=== PATIENT | male | born 1965 | race Caucasian/White ===

== ENCOUNTER 2023-11-06 21:19 | Inpatient (IN) | payer OTHER, SELFPAY ==
[2023-11-06] VITALS (7 sets, daily range): BP systolic 117–142; BP diastolic 72–100; BMI 31.9; BMI 32.3
--- NOTE | 2023-11-06 17:25 | ED.GENMED ---
History of Present Illness
General
Chief Complaint: Chest Pain
Source: patient
Exam Limitations: none
Time Seen by Provider: 11/06/23 17:13
Nursing documentation reviewed up to this point in time: agreed with
History of Present Illness
History of Present Illness:
58-year-old male presents emergency department complaining of chest pain left-sided, left shoulder and left leg.
Past History
Past History
ED Past Medical History: Other (Anemia)
ED Past Surgical History: Other (Hernia repair)
Social History
Tobacco: Non-smoker
Alcohol: None
Drug: None
Personal:
Living: with family
Employment: Employed
Review of Systems
Review of Systems
Allergies reviewed?: Yes
All Other Systems: Not applicable
Constitutional: Reports no symptoms
EENT: Reports no symptoms
Respiratory: Reports no symptoms
Cardiac: Reports chest pain
ABD/GI: Reports no symptoms
: Reports no symptoms
Musculoskeletal: Reports no symptoms
Skin: Reports no symptoms
Neurological: Reports no symptoms
Endocrine: Reports no symptoms
Hematologic/Lymphatic: Reports no symptoms
Psychiatric: Reports no symptoms
Phy Exam
Physical Exam
Physical Exam:
Physical Exam
General: no apparent distress, not acutely ill
Neck: supple. no meningeal signs. normal posterior pharynx
Heart: s1/s2 regular rate and rhythm, no murmur. equal radial
pulses. Left chest wall tenderness
HEENT: Pupils equal round reactive to light, EOMI
Lungs: no acute respiratory distress. clear bilaterally
Abdomen: normal bowel sounds. not tender. no CVAT
Neuro: alert and oriented. no focal neurological deficits cranial nerves II through XII intact
Skin: no rash
Psychiatric: well kept. interactive and cooperative
Extremities: no edema. no calf tenderness. negative homans. good distal pulses
Scores
Heart Score for Chest Pain Patients
STEMI patient?: Not applicable
Course
Orders/Labs/Results
Orders:
Orders
11/06/23 16:37
EKG [Electrocardiogram (*1)] Urgent
Reason for Study: Chest Pain
EKG- Treatment ONCE
11/06/23 17:15
Complete Blood Count/With Diff Urgent
Comprehensive Metabolic Panel Urgent
Troponin I Urgent
11/06/23 17:21
HYDROmorphone [Dilaudid] 1 mg .ROUTE .STK-MED ONE
Ondansetron Injectable [Zofran] 4 mg .ROUTE .STK-MED ONE
11/06/23 17:25
HYDROmorphone [Dilaudid] 1 mg IV NOW STA
Ondansetron Injectable [Zofran] 4 mg IV NOW STA
11/06/23 17:29
CT Chest/abd/pelvis Angio W/wo Urgent
Comment:
Reason For Exam: Chest pain radiating to abdomen and back
11/06/23 19:16
HYDROmorphone [Dilaudid] 1 mg IV NOW STA
11/06/23 19:45
PTT Urgent
Comment: Obtain baseline before beginning heparin infusion if not already collected
Heparin 7,600 units IV NOW STA
Heparin INFUSION titrate rate - CONTINUOUS Heparin 01411 Units/250 ml 25,000 units in 250 ml IV PER PROTOCOL
Weight to be used for heparin protocol in kilograms (kg):: 95.254
Protocol:: DVT/PE
PTT Goal Range to be used:: PTT 73 to 111 seconds
Order type:: Initial
INITIAL Infusion Dose (UNITS/KG/hr) & then follow protocol:: 18 units/kg/hr
Infusion Dose in UNITS/hr & then follow protocol (UNITS/hr):: 1,700
INFUSION RATE in mL/hr & then follow protocol (mL/hr):: 17
For DVT/PE algorithm, re-bolus for low PTT?: Yes
PTT less than or equal to 64 seconds:: Re-bolus 80 units/kg (max 10,000units). Increase by 400 units/hr
(+ 4mL/hr)
PTT 64.1 to 72.9 seconds:: Re-bolus 40 units/kg (max 5,000 units). Increase by 200 units/hr
(+ 2mL/hr)
PTT 73 to 111 seconds:: Target Range. No change in rate.
PTT 111.1 to 130.9 seconds:: Decrease rate by 200 units/hr (- 2 mL/hr)
PTT 131 to 199.9 seconds:: HOLD for 1 hr. Then decrease by 300 units/hr (- 3mL/hr)
PTT greater than or equal to 200 seconds:: HOLD for 2 hrs & Notify Provider. Then decrease by 400 units/hr
(- 4mL/hr)
Lab follow-up:: Each change, PTT q6h until 2 consecutive are therapeutic. Then
PTT daily.
Pharmacy Request to Place See Dose Instructions PO NOW STA
Discontinue all Active Warfarin orders?: Yes
Nursing to Place Non Medication Order As Directed
Physician Order: PTT 6 hours after initial start of Heparin infusion
11/06/23 20:[address] See Dose Instructions IV DIRECTED
Abnormal Lab Results
11/06/23
17:15
RBC 4.62 L 10^6/uL
(4.70-6.10)
MPV 10.8 H fL
(7.4-10.4)
Absolute Neuts (auto) 6.7 H 10^3/uL
(1.4-6.5)
Lymphocytes % 17.5 L %
(20.5-51.1)
BUN 22 H mg/dl
(9-20)
Glucose 155 H mg/dl
(70-99)
11/06/23 17:15
11/06/23 17:15
Vital Signs
Initial and Last Documented VS:
Initial Vital Signs
Temp Pulse Resp BP Pulse Ox
98.1 F 103 22 141/86 94
11/06/23 16:43 11/06/23 16:43 11/06/23 16:43 11/06/23 16:43 11/06/23 16:43
Last Documented Vital Signs
Temp Pulse Resp BP Pulse Ox
98.1 F 81 13 117/72 96
11/06/23 16:43 11/06/23 18:00 11/06/23 18:00 11/06/23 18:00 11/06/23 18:00
MDM/Problems Addressed
Differential Diagnosis Includes:
Pulmonary embolism, aortic dissection
MDM/Problems Addressed:
58-year-old male with bilateral pulmonary emboli. No signs of dissection. IV heparin ordered. Admit to hospitalist.
*Radiology
Radiology exam reviewed: radiology read reviewed (Bilateral pulmonary emboli on CT)
*Pulse Oximetry
Patient hypoxic: no
*EKG
Interpreted by ED Provider?: Yes
EKG Intrepretation Date: 11/06/23
EKG Intrepretation Time: 16:40
Interpretation: normal
Comparison EKG: no comparison EKG present
Heart Rate: 96
Rate: normal
Rhythm: sinus
Thurman: normal axis
Interval: normal interval
QRS Pattern: normal QRS
Ischemia: no ischemia
*[employer] Interpretation
Rate: normal
Interpretation: normal
Heart Rate: 95
Rhythm: sinus
*Critical Care Note
Total Time (30-74mins, 75-104mins- exclusive of procedures): 30
comment:
Critical care statement: A total of 30 minutes of critical care time was provided for this patient. This includes management of unstable vital signs, evaluation of the patient at bedside, reviewing the patient's pertinent medical records, discussion
with consultants, review of old EKGs and review of pertinent medical records. This time with separate from time utilized to perform the aforementioned documented procedures
Patient Management
Social determinants of health affecting care: Living situation
Discussion with other providers: Hospitalist
Escalation/DeEscalation of care consider admission/obs:
Admit indicated
ED Attending Note
-
Portions of this chart may have been created with voice recognition software.� Occasional wrong word or��sound alike� substitutions may have occurred due to the inherent limitations of voice recognition software.
Discharge Plan
Departure
Patient Disposition: Admit
Date of Disposition: 11/06/23
Time of Disposition: 19:41
Admit to: IMU
Presentation/result/management discussed w/ accepting MD/DO: Hospitalist
Patient with high blood pressure during this ER visit?: Yes
Condition: Fair
Discharge Problem:
Bilateral pulmonary embolism
Prescriptions:
No Action
shilajit 250 mg Capsule
250 mg PO DAILY
Referrals:
Lo Oreilly DO [Family Provider] -
Interventions
Interventions:
*Risk Screen - Suicide Last Done: 11/06/23 16:46
*General Assessment Last Done: 11/06/23 17:20
*Neglect/Abuse Screening Last Done: 11/06/23 16:46
ED- Fall Risk Assessment Last Done: 11/06/23 17:19
*ED COVID-19 Vaccine History Last Done: 11/06/23 17:20
ED- Cardiac Assessment Last Done: 11/06/23 17:19
Discharge Date and Time
Print Language: ITALIAN
[2023-11-06 17:26] LABS: % Basophils 0.5 % (0-2); % Immature Granulocytes 0.3 % (0-0.5); % Lymphocytes 17.5 % (20.5-51.1); % Neutrophils 73.7 % (42.2-75.2); Absolute Basophils 0.1 10^3/uL (0-0.2); Absolute Eosinophils 0.2 10^3/uL (0-0.7); Absolute Lymphocytes 1.6 10^3/uL (1.2-3.4); Absolute Monocytes 0.6 10^3/uL (0.1-0.6); Absolute Neutrophils 6.7 10^3/uL (1.4-6.5); Hematocrit 39.4 % (39.0-52.0); Hemoglobin 13.7 g/dL (13.0-18.0); Mean Corp Hgb Conc. 34.8 g/dL (33.0-37.0); Mean Corpuscular Hgb 29.7 pg (27.0-31.0); Mean Corpuscular Volume 85.3 fL (80.0-94.0); Mean Platelet Volume 10.8 fL (7.4-10.4); Nucleated Red Blood Cells % 0 % (-); Platelet Count 323 10^3/uL (130-400); Red Blood Cell Count 4.62 10^6/uL (4.70-6.10); Red Cell Dist. Width 12.3 % (11.5-14.5); White Blood Cell Count 9.2 10^3/uL (4.8-10.8)
[2023-11-06] MEDS: ZOFRAN 4 MG IV (17:33)
[2023-11-06] MEDS: DILAUDID 1 MG IV ×2 (17:33→19:20)
[2023-11-06 17:50] LABS: Troponin I < 0.012 ng/ml
[2023-11-06 17:54] LABS: ALT (SGPT) 20 U/L (0-50); AST (SGOT) 22 U/L (17-59); Albumin 4.6 g/dl (3.5-5.0); Alkaline Phosphatase 75 U/L (38-126); Blood Urea Nitrogen 22 mg/dl (9-20); Calcium 10.1 mg/dl (8.4-10.2); Carbon Dioxide 24 mmol/L (22-30); Chloride 100 mmol/L (98-107); Estimated Creatinine Clearance 81 ml/min; Glucose 155 mg/dl (70-99); Sodium 139 mmol/L (135-145); Total Bilirubin 0.8 mg/dl (0.2-1.3); Total Protein 7.5 g/dl (6.3-8.2); eGFR > 60.00
[2023-11-06] MEDS: HEPARIN 7600 UNITS IV (19:51)
[2023-11-06] MEDS: HEPARIN 25000 UNITS/250 ML IV (20:03)
--- NOTE | 2023-11-06 20:19 | HPS.HSE ---
Family Physician
-
Family Physician: Lo Oreilly
Chief Complaint
-
Left-sided chest pain
History of Present Illness
58-year-old male presents emergency department complaining of chest pain left-sided, left shoulder and left leg.patient stated his symptoms started on left LE on saturday, slowly noticed on left thigh, left side of abdomen, shoulder, chest and back.
today his chest pain got worse. sob worse with exertion and also non productive cough. his symptoms were worse when laying, improves when standing up. denied fever, chills, runny nose, congestion.denied MONTERROSO, dizzy or syncopal episode. denied n,v,d.
denied dysuria or hematuria. denied any recent travel. he sits pretty much all day at work, denied any physical activity.
CT with bilateral PE.
Medical History
Past Medical History
Past Medical History: Reports None
Past Surgical History: Reports Other
Additional Past Surgical History:
hernia surgery
Social History
Tobacco: Non-smoker
Alcohol: None
Drug: None
Personal:
Living: With Family
Employment: Employed
Family History
Family History: Cancer (lung ca with father)
Allergies / Home Medications
Allergies reflects when Allergies were last updated in [facility].
Home Medications with original date entered in [facility]
Allergy/Medication List:
Allergies
Allergy/AdvReac Type Severity Reaction Status Date / Time
No Known Allergies Allergy Unverified 11/06/23 17:26
Home Medications
shilajit 250 mg capsule 250 mg PO DAILY 11/06/23
Review of Systems
-
Constitutional: Reports No Symptoms
EENT: Reports No Symptoms
Respiratory: Reports Cough and Trouble Breathing
Cardiac: Reports Chest Pain
Abdomen/GI: Reports No Symptoms
: Reports No Symptoms
Musculoskeletal: Reports No Symptoms
Skin: Reports No Symptoms
Neurological: Reports No Symptoms
Endocrine: Reports No Symptoms
Hematologic/Lymphatic: Reports No Symptoms
Psych: Reports No Symptoms
Physical Exam
Vital Signs
Vital Signs
Temp Pulse Resp BP Pulse Ox
98.1 F 81 13 117/72 96
11/06/23 16:43 11/06/23 18:00 11/06/23 18:00 11/06/23 18:00 11/06/23 18:00
Physical Exam
General: Well Developed, Well Nourished and No Apparent Distress
HEENT: NormoCephalic, Moist mucous membranes and Atraumatic
Respiratory: Clear
Cardiac: S1/S2 and Regular Rhythm; No Murmur or Rub
GI: Soft, Non Tender, Non Distended and Normal Bowel Sounds; No Organomegaly
Rectal: Deferred by Provider
Musculoskeletal: No Clubbing, No Cyanosis and No Edema
Skin: No Rash
Neuro: AO x 3 and Nonfocal/grossly intact
Psych: Calm
Laboratory Results
-
11/06/23 17:15
11/06/23 17:15
Laboratory Results
Total Bilirubin 0.8 mg/dl (0.2-1.3) 11/06/23 17:15
AST 22 U/L (17-59) 11/06/23 17:15
ALT 20 U/L (0-50) 11/06/23 17:15
Alkaline Phosphatase 75 U/L (38-126) 11/06/23 17:15
Troponin I < 0.012 ng/ml 11/06/23 17:15
Data Reviewed
-
CT Scan: Report Reviewed by me
Lab Data: Labs Reviewed by me
Impression/Plan
-
# Bilateral PE likely from prolonged sitting
-Chest abdomen pelvis CTA with impression of there are bilateral peripheral pulmonary emboli with small associated left pleural effusion and mild-moderate parenchymal airspace disease at both bases
-EKG with sinus rhythm
-initiated on Lovenox
-Tylenol prn for pain
#CODE STATUS
-Full code
[2023-11-06 20:26] LABS: APTT 30.7 Sec (23.4-35.0)
--- NOTE | 2023-11-06 20:42 | W.PN.UPDATE ---
Update Note
Progress Note Update
Patient seen in conjunction with SILVINO. I agree with the findings on history and physical. I concur with the assessment and plan unless stated otherwise.
Briefly this is a 58-year-old female who denies any significant past medical history. Comes into the ED with approximately 4 days of pain that initially started in his left lower extremity then moved into his bilateral back and then radiating into
her abdomen. Pain worse with laying down. Denies any nausea or vomiting. Mild dyspnea. Was concerned of his heart so he came to the ED. Patient apparently spends most of his day sitting down walking on his desk. He reports that he never gets
up to take a break. No recent travels. No hospital admissions. No injuries. Denies any family history of bleeding or clotting disorders. Denies any prior blood clots.
In the ED the patient was afebrile hemodynamically stable satting 96% with a blood pressure of 117/70. ECG showed normal sinus rhythm at a rate of 96. Chemistries were within normal limits. CBC was unremarkable. Troponin was negative. He had a
CTA which showed small peripheral bilateral PEs and a small left pleural effusion. He had mild parenchymal airspace disease on the CT scan.
Assessment and plan
Acute pulmonary embolism�patient likely had a DVT with translocation to rule out pulmonary embolism likely secondary to prolonged immobilization at work. He is hemodynamically stable, has no no evidence of heart strain and has been peripheral PEs
bilaterally. No swelling in the lower extremity. No current calf tenderness. No evidence of massive or submassive PE. Moderate risk.
� telemetry, AC with lovenox therapeutic dose q 12, pain control, oxygen and incentive spirometry
- transition to DOAC on d/c once weaned off O2 and pain controlled.
- follow up with outpatient pmd.
Code Status = Full Code
[2023-11-06] MEDS: LOVENOX 100 MG SC (21:12)
[2023-11-06] MEDS: TORADOL 15 MG IV (22:24)
[2023-11-07 03:21] VITALS: BP 115/68
[2023-11-07] MEDS: TORADOL 15 MG IV (06:28)
[2023-11-07 07:48] LABS: Hematocrit 36.3 % (39.0-52.0); Hemoglobin 12.4 g/dL (13.0-18.0); Mean Corp Hgb Conc. 34.2 g/dL (33.0-37.0); Mean Corpuscular Hgb 29.8 pg (27.0-31.0); Mean Corpuscular Volume 87.3 fL (80.0-94.0); Mean Platelet Volume 11.3 fL (7.4-10.4); Platelet Count 293 10^3/uL (130-400); Red Blood Cell Count 4.16 10^6/uL (4.70-6.10); Red Cell Dist. Width 12.3 % (11.5-14.5)
[2023-11-07 08:00] VITALS: BP 112/78
[2023-11-07] MEDS: LOVENOX 100 MG SC (08:28)
--- NOTE | 2023-11-07 09:19 | W.PN.HOSP.TC ---
Addendum entered and electronically signed by Simon Luque DO 11/07/23 13:01:
Repeat pulse ox check on room air with ambulation done by respiratory. Resting pulse ox 95% on room air, ambulatory pulse ox 90% on room air. Ambulated 300 feet. Does not qualify for home oxygen.
Addendum entered and electronically signed by Simon Luque DO 11/07/23 11:06:
Patient is in need of oxygen on exertion due to pulse oximetry of 91% on room air at rest; 87% on room air with exertion.
Patient was placed on 2L O2 via nasal cannula with saturation of 95%. Oxygen will help to improve hypoxemia.
Patient is mobile within the home. Albuterol therapy has been discussed and is ineffective in treating hypoxemia-related symptoms.
Oxygen will improve the patient's symptoms.
Original Note:
Today's Communication/Plan
-
Ambulatory pulse ox on room air
Discharge
Assessment / Plan
Assessment / Plan
Gen-AAOx3, NAD
HEENT-NC, AT, anicteric, clear oral mm
Neck-supple
CV-reg, no M, +S1/S2
Lungs-clear B/L
Abd-soft, NT, ND
Ext-no edema
Musculoskeletal-no cyanosis, clubbing
Skin-warm and dry
Neuro-grossly non-focal
Psych-calm, cooperative
Acute bilateral segmental pulmonary emboli -etiology unclear. Risk factors include obesity and sedentary lifestyle but need to start screening for occult malignancy. Discussed with patient in detail about getting outpatient colonoscopy, PSA, other
cancer screenings as warranted. He has never had a colonoscopy. Has not seen his primary care doctor in several years. Encouraged him to follow-up within 1 week of discharge.
Convert to Eliquis 10 mg twice daily, first dose tonight. He did get Lovenox this morning. Case management to look into cost.
Hemodynamically stable, anticipate discharge home today.
Check ambulatory pulse ox on room air prior to discharge. Discussed with nursing.
Obesity due to excess calories
Full code
Dispo -discharge today.
32 minutes spent in discharge process.
Anticipated Discharge: Today
Subjective/Interval History
-
Date of Service: November 07, 2023
Patient seen and examined. Feeling better with less pain.
Objective Data
-
Labs:
Laboratory Results
11/07/23
06:42
WBC 7.0
Hgb 12.4 L
Hct 36.3 L
Plt Count 293
Vital Signs:
Vital Signs
Temp Pulse Resp BP Pulse Ox
98 F 82 20 112/78 98
11/07/23 08:00 11/07/23 08:00 11/07/23 08:00 11/07/23 08:00 11/07/23 08:00
I&O
11/06/23 11/07/23 11/08/23
06:59 06:59 06:59
Output Total 300 / 300
Balance -300 / -300
Review of Systems
-
History Source: Patient
All other systems: Reviewed and negative
--- NOTE | 2023-11-07 09:23 | W.DS.TRANS ---
DC Summary - Training Instructor
-
Discharge Instructions:
Discharge Diagnosis/Procedures Pulmonary emboli
Diet Regular
Activity As tolerated
Driving Restrictions As prior to admission
Bathing Restrictions None
Instructions:
Stand-Alone Forms:
Changes to Home Medications: No
Discharge Medications:
DC Medications w/original date entered in [facility]
apixaban 5 mg (74 tabs) tablets in a dose pack ([facility]Incubator DVT-PE Treat 30D Start) See Rx Instructions PO .COMPLEX #74 ea 11/07/23
Home Medication Changes
Pending Results: No
--- NOTE | 2023-11-07 10:06 | CM ---
Addendum entered by Jo Ann Arce 11/07/23 11:28:
Spoke with Giovani at [facility] on [address] [place]. They do have the Eliquis. She will call the [facility] to have them back the script to [facility]. Spoke with patient regarding picking up Eliquis at [facility]. tt Dr. Luque
Original Note:
Patient seen at bedside.
IA Completed. No needs indicated.
Lives with his in a 2 story home. PLOF: Independent No DME.
Case management consult complete for cost of Eliquis 10 mg BID x 7 days, 5 mg BID
Called [facility] [phone] and spoke with Reena & she states estimated cost $113.31 for 30 days.
Called [facility] in [place] & spoke with Jose the pharmacist who stated estimated cost $120
Explained cost to patient and gave him a $10 co-pay coupon.
He stated his pharmacy called him and did not have Eliquis until tomorrow.
called [facility] in [place] to verify or to get the Eliquis from another [facility]. Left message. Will call back.
PLAN: Discharge - no needs
to transport
--- NOTE | 2023-11-07 11:05 | PTCARENOTE ---
Ambulating O2 assessment. Pt started out at 99% on room air, we did a couple laps around the floor. He dipped to 87 at the lowest and was around 90% after the first 50ft or so for most of the walk.
[2023-11-07] MEDS: TYLENOL 650 MG PO (11:30)
[2023-11-07 11:54] VITALS: BP 138/79
== END 2023-11-07 15:32 | disposition home or self-care (01) | DRG 176 ==
LOC: 4 WEST ACU 21:19
PROVIDERS: Emergency Medicine; Registered Nurse; ADMITTING PHYSICIAN Internal Medicine; ATTENDING PHYSICIAN Hospitalist; EMERGENCY PHYSICIAN Emergency Medicine; FAMILY PHYSICIAN Family Medicine
DX: I26.99 Other pulmonary embolism without acute cor pulmonale (principal); E66.09 Other obesity due to excess calories; Z68.32 Body mass index [BMI] 32.0-32.9, adult
CPT/HCPCS: 71275; 74174; 80053; 84484; 85025; 85027; 85730; 93005; 96374; 96375; 96376; 99291; Q9967

== ENCOUNTER → 2024-01-22 06:35 | Day surgery (SDC) | payer OTHER, SELFPAY | LOC: GI 06:35 | PROVIDERS: ATTENDING PHYSICIAN Student in an Organized Health Care Education/Training Program | DX: Z12.11 Encounter for screening for malignant neoplasm of colon (principal); D12.2 Benign neoplasm of ascending colon; D12.4 Benign neoplasm of descending colon; D12.5 Benign neoplasm of sigmoid colon; K63.5 Polyp of colon; K62.1 Rectal polyp; K64.9 Unspecified hemorrhoids; Z86.711 Personal history of pulmonary embolism; Z79.01 Long term (current) use of anticoagulants | CPT/HCPCS: 45385; 45380; 88305 ==